=== PATIENT | male | born 2000 | race Caucasian/White ===

== ENCOUNTER 2018-03-29 15:31 | Emergency (ER) | payer OTHER ==
[~2018-03-29] VITALS: Ht 175.3 cm; Wt 53.1 kg
--- NOTE | 2018-03-29 15:34 | NUR ---
ED Nurse Note: CALLED PT. PT NOT IN WAITING AREA.
[2018-03-29 15:35] VITALS: BP 111/66
[2018-03-29] MEDS ORDERED: NKM (15:39)
--- NOTE | 2018-03-29 15:40 | NUR ---
ED Nurse Note: a/ox. ambulated in to ER due to uppr right abdominal pain 08/30 and N/V/D this morning. no vomitting at this time.
[2018-03-29] MEDS ORDERED: Lidocaine 2% Visc 15ml soln ORAL ONE (16:00)
[2018-03-29] MEDS ORDERED: Dicyclomine HCl 10mg/5ml oral soln ORAL ONE (16:00)
[2018-03-29] MEDS ORDERED: Mylanta II UD 30ml ORAL ONE (16:00)
--- NOTE | 2018-03-29 16:02 | Emergency Room Report ---
History of Present Illness General Chief Complaint: Nausea, Vomiting, and Diarrhea Source: Patient Present Illness HPI 17-year-old male patient presents the ER complaining of vomiting diarrhea times 1 day. Denies blood in vomit or stool. Denies recent travel. Denies contacts with similar symptoms. Reports right upper quadrant abdominal pain and epigastric pain during this time. Denies radiation of pain symptoms. Denies chest pain, shortness of breath. Denies recent antibiotic use. Denies fever, chest pain, shortness of breath. Denies eating food prior to onset of symptoms. Reports up to date on vaccinations. Allergies: Coded Allergies: No Known Allergies (Unverified , 03/29/18) Patient History Past Medical History: see triage record Reviewed Nursing Documentation: PMH: Agreed; PSxH: Agreed Nursing Documentation-PMH Past Medical History: No Stated History Review of Systems All Other Systems: negative except mentioned in HPI Physical Exam Vital Signs Date Time Temp Pulse Resp B/P (MAP) Pulse Ox O2 Delivery O2 Flow Rate FiO2 03/29/18 15:35 98.8 100 16 111/66 96 Room Air Sp02 EP Interpretation: reviewed, normal General Appearance: well appearing, no apparent distress, alert, GCS 15, non- toxic Head: normocephalic, atraumatic Eyes: bilateral eye normal inspection, bilateral eye PERRL ENT: hearing grossly normal, normal pharynx, no angioedema, normal voice, uvula midline, moist mucus membranes Neck: full range of motion Respiratory: lungs clear, normal breath sounds, no rhonchi, no respiratory distress, no accessory muscle use, no wheezing, speaking full sentences Cardiovascular #1: regular rate, rhythm, no edema Gastrointestinal: normal bowel sounds, soft, no mass, non-distended, no guarding, no rebound, tenderness - Right upper quadrant, epigastric Genitourinary: other - Date of Doll, negative Rovsing Musculoskeletal: back normal, digits/nails normal, gait/station normal, normal range of motion, non-tender Neurologic: alert, oriented x3, responsive, motor strength/tone normal, sensory intact Psychiatric: mood/affect normal Skin: no rash Medical Decision Making PA Attestation Dr. Summers is my supervising Physician whom patient management has been discussed with. Diagnostic Impression: Primary Impression: Abdominal pain, vomiting, and diarrhea Additional Impressions: Leukocytosis Total bilirubin, elevated ER Course Pt. presents to the ED c/o abdominal pain and vomiting. Ddx considered but are not limited to UTI, GERD, food poisoning, pancreatitis, appendicitis, gastritis. enteritis, influenza. Negative Doll sign, abdominal TTP, will order CT to rule out underlying etiology. Begin abdominal pain workup. Provided patient with pain medication. Vital signs: are WNL, pt. is afebrile ORDERS: CBC, CMP, Lipase, UA, CT abdomen pelvis, Zofran, Pepcid and medication. ER COURSE: No fever, no blood in stool, no recent travel or hospitalizations, does not require abx treatment at this time. No signs of dehydration, moist mucus membranes, cap refil <2seconds, normal skin turgor. Patient reports eating and drinking normally. CBC shows elevated WBCs, no fever, no signs of infection, will not treat with abx at this time. Ordered CT abdomen. CMP no elevation in WBCs or LFTs, elevation of total bilirubin Lipase WNL Discussed results with patient. CT abdomen pelvis with contrast shows fluid within mid to distal small bowel with appearance of mild wall prominence which may be due to under distention versus enteritis, liquid stool in rectum consistent with diarrhea, no free fluid or free air, no appendicitis, gallbladder within normal limits Discuss results with the patient. Provided patient with copy of results. Instructed patient to followup with PCP and discuss results of report with patient, discuss need for further treatment and referral. Discuss results with patient Likely enteritis causing symptoms. Patient reports relief of pain symptoms while in the ER. Patient able to tolerate PO fluids while in the ER. Instructed patient to report to the ER in 1-2 days or follow-up with primary care provider for repeat lab exams for leukocytosis. Return to ER immediately for new or worsening of symptoms. ER precautions given. Patient seen and evaluated by Dr. Summers, agrees with assessment and treatment plan. DISCHARGE: At this time pt. is stable for d/c to home. Patient resting comfortably, in no acute distress, nontoxic appearing, talking without difficulty. Rx provided to patient. Patient to take medications as instructed Will provide with patient care instructions and any necessary prescriptions. Care plan and follow-up instructions provided. Patient instructed to follow-up with primary care provider in 3 - 5 days. Patient questions asked and answered. Patient reports understanding and agreement to treatment plan. ER precautions given. Patient instructed to return to ER immediately for any new or worsening of symptoms including but not limited to increasing SOB, persistent fever, worsening of pain symptoms, intractable vomiting, blood in stool, urine, and/or emesis. - Please note that this Emergency Department Report was dictated using [employer] in chancery technology software, occasionally this can lead to erroneous entry secondary to interpretation by the dictation equipment. Labs Test 03/29/18 16:15 03/29/18 17:25 White Blood Count 19.2 K/UL (4.8-10.8) Red Blood Count 4.83 M/UL (4.70-6.10) Hemoglobin 15.0 G/DL (14.2-18.0) Hematocrit 43.9 % (42.0-52.0) Mean Corpuscular Volume 91 FL (80-99) Mean Corpuscular Hemoglobin 31.2 PG (27.0-31.0) Mean Corpuscular Hemoglobin Concent 34.2 G/DL (32.0-36.0) Red Cell Distribution Width 11.6 % (11.6-14.8) Platelet Count 236 K/UL (150-450) Mean Platelet Volume 6.9 FL (6.5-10.1) Neutrophils (%) (Auto) % (45.0-75.0) Lymphocytes (%) (Auto) % (20.0-45.0) Monocytes (%) (Auto) % (1.0-10.0) Eosinophils (%) (Auto) % (0.0-3.0) Basophils (%) (Auto) % (0.0-2.0) Sodium Level 140 MMOL/L (136-145) Potassium Level 3.9 MMOL/L (3.5-5.1) Chloride Level 105 MMOL/L (98-107) Carbon Dioxide Level 24 MMOL/L (21-32) Anion Gap 11 mmol/L (5-15) Blood Urea Nitrogen 13 mg/dL (7-18) Creatinine 0.8 MG/DL (0.55-1.30) Estimat Glomerular Filtration Rate > 60 mL/min (>60) Glucose Level 95 MG/DL (74-106) Calcium Level 9.3 MG/DL (8.5-10.1) Total Bilirubin 1.8 MG/DL (0.2-1.0) Direct Bilirubin 0.3 MG/DL (0.0-0.3) Aspartate Amino Transf (AST/SGOT) 21 U/L (15-37) Alanine Aminotransferase (ALT/SGPT) 33 U/L (12-78) Alkaline Phosphatase 77 U/L (46-116) Total Protein 8.0 G/DL (6.4-8.2) Albumin 4.5 G/DL (3.4-5.0) Globulin 3.5 g/dL Albumin/Globulin Ratio 1.3 (1.0-2.7) Lipase 137 U/L (73-393) Urine Color Macey Urine Appearance Slightly cloudy Urine pH 5 (4.5-8.0) Urine Specific [place] 1.020 (1.005-1.035) Urine Protein 1+ (NEGATIVE) Urine Glucose (UA) Negative (NEGATIVE) Urine Ketones 3+ (NEGATIVE) Urine Blood 3+ (NEGATIVE) Urine Nitrite Negative (NEGATIVE) Urine Bilirubin Negative (NEGATIVE) Urine Ictotest Negative (NEGATIVE) Urine Urobilinogen Normal MG/DL (0.0-1.0) Urine Leukocyte Esterase Negative (NEGATIVE) Urine RBC 5-10 /HPF (0 - 0) Urine WBC 0-2 /HPF (0 - 0) Urine Squamous Epithelial Cells Moderate /LPF (NONE/OCC) Urine Bacteria Few /HPF (NONE) Urine Mucus Few /LPF (NONE/OCC) CT/MRI/US Diagnostic Results CT/MRI/US Diagnostic Results : Imaging Test Ordered: CT abdomen pelvis with contrast Impression Fluid within mid to distal small bowel with appearance of mild wall prominence which may be due to under distention versus enteritis No bowel dilation, free air or free fluid Lung bases are clear Abdominal solid organs and gallbladder appear within limits Normal caliber appendix without secondary signs Liquid stool to the rectum consistent with diarrhea Last Vital Signs Date Time Temp Pulse Resp B/P (MAP) Pulse Ox O2 Delivery O2 Flow Rate FiO2 03/29/18 15:35 98.8 100 16 111/66 96 Room Air Disposition: HOME, SELF-CARE Condition: Stable Patient Instructions: Diarrhea, Adult, [id number], Nausea and Vomiting, Adult , [id number] Additional Instructions: Followup with primary care provider or return to ER in 1-2 days for repeat labs. Avoid spicy foods, avoid dairy foods. BRAT diet: bananas, rice, apple sauce, toast. Consider Immodium for diarrhea. Take medications as directed. Patient questions asked and answered. ER precautions given, patient instructed to return to ER immediately for any new or worsening of symptoms. Aneesh Rowan Mar 29, 2018 16:02
[2018-03-29 16:52] LABS: HEMATOCRIT 43.9 % (42.0-52.0); MEAN CORPUSCULAR VOLUME 91 FL (80-99); PLATELET COUNT 236 K/UL (150-450); RED BLOOD COUNT 4.83 M/UL (4.70-6.10); RED CELL DISTRIBUTION WIDTH 11.6 % (11.6-14.8); WHITE BLOOD COUNT 19.2 K/UL (4.8-10.8)
[2018-03-29 17:12] VITALS: BP 112/60
[2018-03-29 17:14] LABS: ANION GAP 11 mmol/L (5-15); BLOOD UREA NITROGEN 13 mg/dL (7-18); CALCIUM 9.3 MG/DL (8.5-10.1); CARBON DIOXIDE 24 MMOL/L (21-32); CHLORIDE 105 MMOL/L (98-107); CREATININE 0.8 MG/DL (0.55-1.30); POTASSIUM 3.9 MMOL/L (3.5-5.1); SODIUM 140 MMOL/L (136-145)
[2018-03-29] MEDS ORDERED: Isovue-300 100ml vial INJ PRN (17:15)
--- NOTE | 2018-03-29 17:15 | NUR ---
ED Nurse Note: VSS, educated pt to provide urine sample, pt verbalized understanding.
[2018-03-29 17:25] LABS: ALANINE AMINOTRANSFERASE 33 U/L (12-78); ALBUMIN 4.5 G/DL (3.4-5.0); ALBUMIN/GLOBULIN RATIO 1.3 (1.0-2.7); ALKALINE PHOSPHATASE 77 U/L (46-116); ASPARTATE AMINO TRANSFERASE 21 U/L (15-37); BILIRUBIN,TOTAL 1.8 MG/DL (0.2-1.0)
[2018-03-29 17:28] LABS: BILIRUBIN,DIRECT 0.3 MG/DL (0.0-0.3)
[2018-03-29 17:34] LABS: BILIRUBIN, URINE NEGATIVE (NEGATIVE); COLOR,URINE AMBER; GLUCOSE, URINE (UA) NEGATIVE (NEGATIVE); KETONES,URINE 3+ (NEGATIVE); LEUKOCYTE ESTERASE ,URINE NEGATIVE (NEGATIVE); NITRITE,URINE NEGATIVE (NEGATIVE); PH,URINE 5 (4.5-8.0); PROTEIN,URINE 1+ (NEGATIVE); UROBILINOGEN,URINE NORMAL MG/DL (0.0-1.0)
[2018-03-29 17:37] LABS: APPEARANCE,URINE SLIGHTLY CLOUDY
[2018-03-29] MEDS ORDERED: TYLENOL EXTRA500 MG ORAL (18:51)
[2018-03-29 19:14] VITALS: BP 106/63
--- NOTE | 2018-03-29 19:15 | NUR ---
HAND-OFF: Report given to CATRACHITA Veloz. No s/s of distress.
[2018-03-29 19:40] VITALS: BP 115/75
--- NOTE | 2018-03-29 19:40 | NUR ---
ED Nurse Note: no noted episode of vomiting, ermd cleared pt for discharge, iv and id band removed. discharge instruction explained. pt went out the ed with mother with steady gait and with all belongings.
--- NOTE | 2018-03-30 10:02 | Diagnostic Imaging Report ---
Indication: Abdominal pain Technique: Continuous helical transaxial imaging of the abdomen and pelvis was obtained from the lung bases to the pubic symphysis during intravenous contrast administration. Coronal 2-D reformats were also obtained. Study obtained in a Siemens sensation [address] Automatic Exposure Control was utilized. Total Dose length Product (DLP): 477.[address] Dose Index Volume (CTDIvol): 9.27 mGy Comparison: None Findings: There is a pectus excavatum. Lung bases are clear. Kidneys are unremarkable. Contrast was apparently administered as there is contrast material in the collecting system. The phase of enhancement is somewhat late than typical and not optimal for solid organ evaluation. That said no obvious abnormalities of the kidneys, liver cyst, spleen identified. There is no adrenal mass. Gallbladder is unremarkable. Pancreas is unremarkable. There is no free fluid. Mildly distended fluid-filled loops of small bowel noted in a diffuse fashion. Consider ileus or enteritis. There is also liquefied stool in the colon which may be a sign of diarrhea. IMPRESSION: Suspected gastroenteritis and diarrhea. Correlate clinically Negative exam otherwise. [facility] has communicated the preliminary results to the Emergency Department. Their findings are largely concordant with this report. The CT scanner at [facility] is accredited by the [employer] and the scans are performed using dose optimization techniques as appropriate to a performed exam including Automatic Exposure control.
== END 2018-03-29 19:40 | disposition home or self-care (01) ==
LOC: EMR 16:48
DX: R19.7 Diarrhea, unspecified (principal); R10.13 Epigastric pain; R11.10 Vomiting, unspecified; D72.829 Elevated white blood cell count, unspecified; E80.7 Disorder of bilirubin metabolism, unspecified
CPT/HCPCS: 36415; 74177; 80053; 81003; 82248; 83690; 85025; 96361; 96374; 96375; 99284; J2405; Q9967; S0028

== ENCOUNTER 2018-03-31 19:01 | Emergency (ER) | payer OTHER ==
[~2018-03-31] VITALS: Ht 175.3 cm; Wt 53.1 kg
[~2018-03-31 19:01] MED LIST: NKM; TYLENOL EXTRA500 MG ORAL
[2018-03-31 19:10] VITALS: BP 122/74
--- NOTE | 2018-03-31 19:10 | NUR ---
ED Nurse Note: Pt walked in ER and recheck his lab work. Pt was in ER last week and high WBC. Pt si AO x 4times, VSS, on room air no distress. ERMD seen Pt at bedside.
[2018-03-31 20:30] LABS: ALANINE AMINOTRANSFERASE 30 U/L (12-78); ALBUMIN/GLOBULIN RATIO 1.1 (1.0-2.7); ALKALINE PHOSPHATASE 68 U/L (46-116); ANION GAP 7 mmol/L (5-15); ASPARTATE AMINO TRANSFERASE 15 U/L (15-37); BASOPHILS % (AUTO) 1.1 % (0.0-2.0); BILIRUBIN,TOTAL 0.9 MG/DL (0.2-1.0); BLOOD UREA NITROGEN 9 mg/dL (7-18); CARBON DIOXIDE 32 MMOL/L (21-32); CHLORIDE 103 MMOL/L (98-107); CREATININE 0.8 MG/DL (0.55-1.30); EOSINOPHILS % (AUTO) 2.7 % (0.0-3.0); HEMATOCRIT 44.4 % (42.0-52.0); HEMOGLOBIN 15.2 G/DL (14.2-18.0); LYMPHOCYTES % (AUTO) 29.6 % (20.0-45.0); MEAN CORPUSCULAR VOLUME 90 FL (80-99); MONOCYTES % (AUTO) 13.9 % (1.0-10.0); NEUTROPHILS % (AUTO) 52.8 % (45.0-75.0); PLATELET COUNT 249 K/UL (150-450); POTASSIUM 3.5 MMOL/L (3.5-5.1); RED BLOOD COUNT 4.96 M/UL (4.70-6.10); RED CELL DISTRIBUTION WIDTH 11.6 % (11.6-14.8); SODIUM 142 MMOL/L (136-145); WHITE BLOOD COUNT 6.7 K/UL (4.8-10.8)
--- NOTE | 2018-03-31 20:41 | Emergency Room Report ---
History of Present Illness General Chief Complaint: General Complaint Source: Patient Present Illness HPI 17-year-old male patient presents the ER for repeat labs. Patient was previously seen in the ER by myself for vomiting and diarrhea. At that time had leukocytosis, was instructed to return to the ER 1-2 days for repeat labs to monitor white blood cell count. Patient reports asymptomatic during the past 2 days. Reports "I was able to go to work today". Denies vomiting or diarrhea. Denies other acute symptoms. Denies fever, chest pain, shortness of breath. Allergies: Coded Allergies: No Known Allergies (Unverified , 03/29/18) Patient History Past Medical History: see triage record Reviewed Nursing Documentation: PMH: Agreed; PSxH: Agreed Nursing Documentation-PMH Past Medical History: No Stated History Review of Systems All Other Systems: negative except mentioned in HPI Physical Exam Vital Signs Date Time Temp Pulse Resp B/P (MAP) Pulse Ox O2 Delivery O2 Flow Rate FiO2 03/31/18 19:05 98.1 76 15 122/68 97 Room Air Sp02 EP Interpretation: reviewed, normal General Appearance: well appearing, no apparent distress, alert, GCS 15, non- toxic Head: normocephalic, atraumatic Eyes: bilateral eye normal inspection, bilateral eye PERRL ENT: hearing grossly normal, normal pharynx, no angioedema, normal voice, uvula midline, moist mucus membranes Neck: full range of motion Respiratory: lungs clear, normal breath sounds, no rhonchi, no respiratory distress, no accessory muscle use, no wheezing, speaking full sentences Cardiovascular #1: regular rate, rhythm, no edema Gastrointestinal: non tender, soft, no mass, non-distended, no guarding, no rebound Musculoskeletal: back normal, digits/nails normal, gait/station normal, normal range of motion, non-tender Neurologic: alert, oriented x3, responsive, motor strength/tone normal, sensory intact Psychiatric: mood/affect normal Skin: no rash Medical Decision Making PA Attestation Dr. Layne is my supervising Physician whom patient management has been discussed with. Diagnostic Impression: Primary Impression: Encounter for laboratory test ER Course Pt presents to ED for repeat labs, previously seen two days ago for vomiting and diarrhea with leukocytosis. DDX considered but are not limited to infection, leukocytosis, repeat labs. VITAL SIGNS are WNL, patient is afebrile ER COURSE: CBC and CMP repeated. NO signs of elevation in WBCs, LFTs, or total bilirubin. Labs improved from previous visit. Followup with PCP. ER precautions given. DISCHARGE: At this time pt is stable for d/c to home. Patient resting comfortably in no acute distress, nontoxic appearing. Will provide with patient care instructions and any necessary prescriptions. Patient to take medication as instructed. Care plan and follow-up instructions provided. Patient questions asked and answered. Patient instructed to follow-up with primary care provider in 3 - 5 days. ER precautions given. Patient instructed to return to ER immediately for any new or worsening of symptoms. -Please note this Emergency Department Report was dictated using [email or web address] supervisor technology software, occasionally this can lead to erroneous entry secondary to interpretation by the dictation equipment. Labs Test 03/31/18 19:54 White Blood Count 6.7 K/UL (4.8-10.8) Red Blood Count 4.96 M/UL (4.70-6.10) Hemoglobin 15.2 G/DL (14.2-18.0) Hematocrit 44.4 % (42.0-52.0) Mean Corpuscular Volume 90 FL (80-99) Mean Corpuscular Hemoglobin 30.7 PG (27.0-31.0) Mean Corpuscular Hemoglobin Concent 34.3 G/DL (32.0-36.0) Red Cell Distribution Width 11.6 % (11.6-14.8) Platelet Count 249 K/UL (150-450) Mean Platelet Volume 7.3 FL (6.5-10.1) Neutrophils (%) (Auto) 52.8 % (45.0-75.0) Lymphocytes (%) (Auto) 29.6 % (20.0-45.0) Monocytes (%) (Auto) 13.9 % (1.0-10.0) Eosinophils (%) (Auto) 2.7 % (0.0-3.0) Basophils (%) (Auto) 1.1 % (0.0-2.0) Sodium Level 142 MMOL/L (136-145) Potassium Level 3.5 MMOL/L (3.5-5.1) Chloride Level 103 MMOL/L (98-107) Carbon Dioxide Level 32 MMOL/L (21-32) Anion Gap 7 mmol/L (5-15) Blood Urea Nitrogen 9 mg/dL (7-18) Creatinine 0.8 MG/DL (0.55-1.30) Estimat Glomerular Filtration Rate > 60 mL/min (>60) Glucose Level 86 MG/DL (74-106) Calcium Level 9.0 MG/DL (8.5-10.1) Total Bilirubin 0.9 MG/DL (0.2-1.0) Aspartate Amino Transf (AST/SGOT) 15 U/L (15-37) Alanine Aminotransferase (ALT/SGPT) 30 U/L (12-78) Alkaline Phosphatase 68 U/L (46-116) Total Protein 7.8 G/DL (6.4-8.2) Albumin 4.0 G/DL (3.4-5.0) Globulin 3.8 g/dL Albumin/Globulin Ratio 1.1 (1.0-2.7) Last Vital Signs Date Time Temp Pulse Resp B/P (MAP) Pulse Ox O2 Delivery O2 Flow Rate FiO2 03/31/18 19:05 98.1 76 15 122/68 97 Room Air Disposition: HOME, SELF-CARE Condition: Stable Patient Instructions: Leukocytosis Additional Instructions: Followup with primary care provider in 3 -5 days. Take medications as directed. Patient questions asked and answered. ER precautions given, patient instructed to return to ER immediately for any new or worsening of symptoms. Aneesh Rowan Mar 31, 2018 20:41
[2018-03-31 20:55] VITALS: BP 130/70
--- NOTE | 2018-03-31 20:55 | NUR ---
ED Nurse Note: Pt cleared DC by JENN. Pt is AO x 4times, VSS, on room air no distress. DC and Meds instructions given to Pt, Pt understood well. Belongings given to Pt. ID bend and IV site removed. Pt walked out unit with steady gait.
== END 2018-03-31 20:55 | disposition home or self-care (01) ==
LOC: EMR 20:54
DX: Z00.00 Encounter for general adult medical examination without abnormal findings (principal)
CPT/HCPCS: 36415; 80053; 85025; 99281